=== PATIENT | male | born 1950 | race Caucasian/White ===

== ENCOUNTER 2018-03-31 23:54 | Emergency (ER) | payer MEDICARE, MEDICAID ==
[~2018-03-31] VITALS: Ht 167.6 cm; Wt 100.0 kg
[2018-04-01] MEDS ORDERED: ASPIRIN 81MG TABLET PO ONE (00:30)
[2018-04-01] MEDS ORDERED: METOPROLOL TARTRATE 100MG TABLET PO ONE (00:45)
[2018-04-01 01:24] LABS: BASOPHILS % 0.7 % (0.0-2.0); EOSINOPHILS % 2.7 % (0.0-5.0); HEMATOCRIT. 37.3 % (42.0-52.0); HEMOGLOBIN. 12.9 g/dL (14.0-18.0); LYMPHOCYTES % 16.5 % (20.0-50.0); MEAN CORPUSCULAR HEMOGLOBIN 29.6 pg (28.0-32.0); MEAN CORPUSCULAR VOLUME 85.4 fL (80.0-94.0); MEAN PLATELET VOLUME 6.8 fl (7.4-10.4); MONOCYTES % 12.6 % (2.0-8.0); NEUTROPHILS % 67.5 % (40.0-76.0); PLATELET 234 x1000/uL (130-400); RED BLOOD CELL COUNT 4.37 mill/uL (4.7-6.1); RED CELL DISTRIBUTION WIDTH 15.8 % (11.6-14.6)
[2018-04-01 01:32] LABS: CHLORIDE 94 mEq/L (98-107)
[2018-04-01] MEDS ORDERED: KETOROLAC 30MG/ML VIAL IV ONE (03:45)
[2018-04-01 06:22] VITALS: BP 150/75
== END 2018-04-01 06:23 | disposition home or self-care (01) ==
LOC: ER 23:54 → CANBEDREQ 04-01 12:03
DX: M54.2 Cervicalgia (principal); M25.512 Pain in left shoulder; E11.9 Type 2 diabetes mellitus without complications; I10 Essential (primary) hypertension; E78.00 Pure hypercholesterolemia, unspecified
CPT/HCPCS: 36415; 71045; 80053; 84484; 85025; 93005; 96374; 99285; J1885